=== PATIENT | female | born 1985 | race Caucasian/White ===

== ENCOUNTER 2019-02-23 10:30 | Inpatient (IN) | payer MEDICAID ==
[~2019-02-23] VITALS: Ht 162.6 cm; Wt 119.4 kg
[~2019-02-23 10:30] MED LIST: DOCU-144 PO; IBUP800T48 PO
[2019-02-24 00:57] VITALS: Ht 162.6 cm; Wt 119.4 kg
[2019-02-24 00:58] VITALS: BP 116/64; PULSE 88; RESP 18
[2019-02-24] MEDS ORDERED: LACTATED RINGER'S 1,000 ML IV PRN (01:07)
[2019-02-24] MEDS ORDERED: OXYTOCIN 30 UNITS/LR 500 ML IV SCH ×2 (01:30)
[2019-02-24] MEDS ORDERED: IBUPROFEN 600 MG TAB PO PRN (01:30)
[2019-02-24] MEDS ORDERED: METHYLERGONOVINE 0.2 MG INJ IM PRN (01:30)
[2019-02-24] MEDS ORDERED: LIDOCAINE 1% (MPF) 30 ML INJ INJ PRN (01:30)
[2019-02-24] MEDS ORDERED: AMPICILLIN 2 GM/NS (PMX) 100 ML IV ONE (01:30)
[2019-02-24] MEDS ORDERED: CARBOPROST 250 MCG INJ IM PRN (01:30)
[2019-02-24] MEDS ORDERED: BUTORPHANOL 2 MG INJ IV PRN ×2 (01:30)
[2019-02-24] MEDS ORDERED: MISOPROSTOL 200 MCG TAB PR PRN (01:30)
[2019-02-24] MEDS ORDERED: OXYTOCIN 30 UNITS/LR 500 ML IV PRN ×2 (01:30→21:30)
[2019-02-24] MEDS: LACTATED RINGER'S 1,000 ML IV SCH ×3 (01:41→16:11)
[2019-02-24] MEDS: MISOPROSTOL 50 MCG CAPSULE PO SCH ×4 (01:41→16:11)
[2019-02-24] MEDS: AMPICILLIN 1 GM/NS (PMX) 50 ML IV SCH ×4 (07:54→20:21)
[2019-02-24] MEDS: LABETALOL 100 MG TAB PO SCH ×2 (08:42→21:07)
[2019-02-24] MEDS ORDERED: MINERAL OIL LIGHT 10 ML VIAL TOP ONE (19:00)
[2019-02-25] MEDS: AMPICILLIN 1 GM/NS (PMX) 50 ML IV SCH ×5 (00:52→16:04)
[2019-02-25] MEDS: LACTATED RINGER'S 1,000 ML IV SCH ×4 (00:53→18:46)
[2019-02-25] MEDS: LABETALOL 100 MG TAB PO SCH ×2 (08:57→21:00)
[2019-02-25] MEDS ORDERED: FENTAnyl 2MCG/ML-ROPIV 0.2% 100 ML ONE (12:59)
[2019-02-25] MEDS ORDERED: FENTAnyl 2MCG/ML-ROPIV 0.2% 100 ML BAG EPI SCH (13:00)
[2019-02-25] MEDS ORDERED: NALOXONE (0.4 MG/ML) INJ IV PRN (13:00)
[2019-02-25] MEDS ORDERED: OXYTOCIN 30 UNITS/LR 500 ML IV SCH (23:14)
[2019-02-25] MEDS ORDERED: METHYLERGONOVINE 0.2 MG INJ IM PRN (23:30)
[2019-02-25] MEDS ORDERED: NACL 0.9% 3 ML SYG IV SCH (23:30)
[2019-02-25] MEDS ORDERED: ONDANSETRON 4 MG INJ IV PRN (23:30)
[2019-02-25] MEDS ORDERED: OXYTOCIN 30 UNITS/LR 500 ML IV PRN (23:30)
[2019-02-25] MEDS ORDERED: MISOPROSTOL 200 MCG TAB PR PRN (23:30)
[2019-02-25] MEDS ORDERED: CARBOPROST 250 MCG INJ IM PRN (23:30)
[2019-02-25] MEDS ORDERED: LANOLIN HPA 1 PKT TOP PRN (23:30)
[2019-02-26 00:50] VITALS: BP 104/52; RESP 18
[2019-02-26] MEDS: IBUPROFEN 800 MG TAB PO SCH ×5 (00:50→23:38)
[2019-02-26 03:25] VITALS: BP 103/50; RESP 18
[2019-02-26 08:15] VITALS: BP 95/52; PULSE 82; RESP 19
[2019-02-26] MEDS: LABETALOL 100 MG TAB PO SCH ×2 (09:00→21:00)
[2019-02-26 12:00] VITALS: BP 94/56; PULSE 79; RESP 20
[2019-02-26 16:00] VITALS: BP 97/59; PULSE 79; RESP 20
[2019-02-26 19:45] VITALS: BP 112/56; PULSE 63; RESP 18
[2019-02-27 03:55] VITALS: BP 111/52; PULSE 80; RESP 19
[2019-02-27] MEDS: IBUPROFEN 800 MG TAB PO SCH ×2 (05:35→13:20)
[2019-02-27 08:00] VITALS: BP 118/58; PULSE 85; RESP 18
[2019-02-27] MEDS: LABETALOL 100 MG TAB PO SCH (09:00)
[2019-02-27 16:30] VITALS: BP 129/60; PULSE 87; RESP 18
[2019-02-27 16:32] VITALS: BP 128/61; PULSE 86; RESP 18
== END 2019-02-27 17:00 | disposition home or self-care (01) | DRG 806 ==
LOC: L-D 22:00 → MS1 02-26 01:18
PROVIDERS: ADMIT Obstetrics & Gynecology; ATTEND Obstetrics & Gynecology
PROC: 10E0XZZ Delivery of Products of Conception, External Approach (ICD-10-PCS; principal; 2019-02-25)
PROC: 0KQM0ZZ Repair Perineum Muscle, Open Approach (ICD-10-PCS; 2019-02-25)
PROC: 3E033VJ Introduction of Other Hormone into Peripheral Vein, Percutaneous Approach (ICD-10-PCS; 2019-02-25)
DX: O10.92 Unspecified pre-existing hypertension complicating childbirth (principal); Z68.42 Body mass index [BMI] 45.0-49.9, adult; Z37.0 Single live birth; O99.213 Obesity complicating pregnancy, third trimester; Z3A.37 37 weeks gestation of pregnancy; O70.1 Second degree perineal laceration during delivery
CPT/HCPCS: 62322; 76815; 76818; 80053; 81001; 84560; 85025; 85384; 85610; 85730; 86592; 86850; 86900; 86901; 87340; 99464; J0290; J2210; J2590; J3010; J7120